=== PATIENT | male | born 2000 | race Asian ===

== ENCOUNTER 2024-11-22 19:23 | Inpatient (IN) | payer MEDICAID ==
[~2024-11-22] VITALS: Ht 172.7 cm; Wt 55.8 kg
[~2024-11-22 19:23] MED LIST: LURA60TA PO; VENL-193 PO
[2024-11-22] MEDS ORDERED: haloperidoL 5 MG TABLET PO PRN (20:45)
[2024-11-22 20:52] VITALS: BP 121/81; PULSE 103; RESP 16; TEMP 98.2; O2SAT 99
[2024-11-22] MEDS: LORazepam 2 MG TABLET PO PRN (21:32)
[2024-11-22] MEDS ORDERED: TUBERCULIN, PURIFIED PROTEIN DERIVATIVE 5 TU/0.1 ML SYRINGE ID ONE (21:45)
[2024-11-22] MEDS ORDERED: GuaiFENesin/D-METHORPHAN [SUGAR-FREE] 200-20MG/10 ML SYRUP UDCUP PO PRN (21:45)
[2024-11-22] MEDS ORDERED: LOPERAMIDE HCL 2 MG CAPSULE PO PRN (21:45)
[2024-11-22] MEDS ORDERED: PROMETHAZINE HCL 25 MG TABLET PO PRN (21:45)
[2024-11-22] MEDS ORDERED: ACETAMINOPHEN 325 MG TABLET PO PRN (21:45)
[2024-11-22] MEDS ORDERED: MAG HYDROX/ALUMINUM HYD/SIMETH ES 30 ML SUSPENSION UDCUP PO PRN (21:45)
[2024-11-22] MEDS ORDERED: MAGNESIUM HYDROXIDE SUSPENSION 30 ML UDCUP PO PRN (21:45)
[2024-11-22 21:46] LABS: GLUCOMETER DEV NAME(LOC) POC.BV; POC SARS-COV2 AG, FIA NEGATIVE (NEGATIVE)
[2024-11-22] MEDS: ZOLPIDEM TARTRATE 10 MG TABLET PO PRN (22:08)
[2024-11-23 08:20] VITALS: BP 121/79; PULSE 80; RESP 16; TEMP 96.9; O2SAT 100
[2024-11-23] MEDS: THIAMINE 100 MG TABLET PO SCH (09:00)
[2024-11-23] MEDS: FLUoxetine HCL 20 MG CAPSULE PO SCH (09:00)
[2024-11-23] MEDS: MULTIVITAMINS WITH MINERALS, THERAPEUTIC TABLET PO SCH (09:00)
[2024-11-23] MEDS: OMEGA-3/DHA/EPA/FISH OIL 1,000 MG CAPSULE PO SCH (09:00)
[2024-11-23] MEDS: FOLIC ACID 1 MG TABLET PO SCH (09:00)
[2024-11-23] MEDS: NALTREXONE HCL 50 MG TABLET PO SCH (09:00)
[2024-11-23] MEDS: ARIPiprazole 2 MG TABLET PO SCH (09:00)
[2024-11-23] MEDS: DEXTROMETHORPHAN HBR/QUINIDINE 20/10 MG CAPSULE PO SCH (09:00)
[2024-11-23 10:37] LABS: APPEARANCE,URINE TURBID (CLEAR); BILIRUBIN,URINE NEGATIVE (NEGATIVE); COLOR,URINE YELLOW (YELLOW); GLUCOSE, URINE (UA) NEGATIVE (NEGATIVE); LEUKOCYTE ESTERASE ,URINE TRACE (NEGATIVE); NITRATE,URINE NEGATIVE (NEGATIVE); OCCULT BLOOD,URINE NEGATIVE (NEGATIVE); PROTEIN,URINE NEGATIVE (NEGATIVE); SPECIFIC GRAVITIY, URINE 1.029 (1.003-1.030); UROBILINOGEN,URINE <=1.0 mg/dL (<=1.0)
[2024-11-23 10:40] LABS: ALCOHOL, URINE DRUG SCREEN NEGATIVE (NEGATIVE); AMPHET/METH SCREEN,URINE NEGATIVE (NEGATIVE); BARBITURATE SCREEN, URINE NEGATIVE (NEGATIVE); BENZODIAZEPINES SCREEN,URINE NEGATIVE (NEGATIVE); CANNABINOID SCREEN,URINE NEGATIVE (NEGATIVE); METHADONE SCREEN, URINE NEGATIVE (NEGATIVE); OPIATE SCREEN,URINE NEGATIVE (NEGATIVE); PHENCYCLIDINE SCREEN,URINE NEGATIVE (NEGATIVE)
[2024-11-23 11:00] LABS: AMORPHOUS SEDIMENT,UR Moderate /LPF (None Seen); BACTERIA,URINE None Seen /HPF (None Seen); RBC,URINE None Seen /HPF (0-2); WBC,URINE 0-2 /HPF (0-5)
[2024-11-23 11:17] LABS: COCAINE SCREEN,URINE NEGATIVE (NEGATIVE)
[2024-11-23] MEDS: HydrOXYzine PAMOATE 50 MG CAPSULE PO PRN (15:54)
[2024-11-23] MEDS ORDERED: QUEtiapine FUMARATE 25 MG TABLET PO PRN (17:30)
[2024-11-23 20:04] VITALS: BP 121/70; PULSE 100; RESP 16; TEMP 97.7; O2SAT 95
[2024-11-23] MEDS: QUEtiapine FUMARATE 100 MG TABLET PO SCH (20:17)
[2024-11-23] MEDS: MIRTAZAPINE 15 MG TABLET PO SCH (20:17)
[2024-11-23] MEDS: GABAPENTIN 400 MG CAPSULE PO SCH (20:17)
[2024-11-23] MEDS: MELATONIN 5 MG TABLET PO SCH (20:18)
[2024-11-24 08:05] VITALS: BP 90/60; PULSE 67; RESP 18; TEMP 97.9; O2SAT 98
[2024-11-24] MEDS: GABAPENTIN 300 MG CAPSULE PO SCH (16:29)
[2024-11-24 20:03] VITALS: BP 117/62; PULSE 100; RESP 17; TEMP 97.8
[2024-11-24] MEDS: MIRTAZAPINE 15 MG TABLET PO SCH (20:45)
[2024-11-25 08:11] VITALS: RESP 16
[2024-11-25 08:44] LABS: PH,URINE DRUG SCREEN 6.5 (5.0-8.0)
[2024-11-25 08:49] LABS: ALCOHOL, URINE DRUG SCREEN NEGATIVE (NEGATIVE); AMPHET/METH SCREEN,URINE NEGATIVE (NEGATIVE); BARBITURATE SCREEN, URINE NEGATIVE (NEGATIVE); BENZODIAZEPINES SCREEN,URINE NEGATIVE (NEGATIVE); CANNABINOID SCREEN,URINE NEGATIVE (NEGATIVE); COCAINE SCREEN,URINE NEGATIVE (NEGATIVE); METHADONE SCREEN, URINE NEGATIVE (NEGATIVE); OPIATE SCREEN,URINE NEGATIVE (NEGATIVE); PHENCYCLIDINE SCREEN,URINE NEGATIVE (NEGATIVE)
[2024-11-25] MEDS: GABAPENTIN 300 MG CAPSULE PO SCH (17:45)
[2024-11-25] MEDS: BusPIRone HCL 5 MG TABLET PO SCH (17:45)
[2024-11-25] MEDS: QUEtiapine FUMARATE 25 MG TABLET PO SCH (17:45)
[2024-11-26 08:42] VITALS: BP 104/72; PULSE 71; RESP 17; TEMP 98; O2SAT 97
[2024-11-26] MEDS: NALTREXONE HCL 50 MG TABLET PO SCH (11:10)
[2024-11-26] MEDS: FLUoxetine HCL 20 MG CAPSULE PO SCH (11:11)
[2024-11-26] MEDS: DEXTROMETHORPHAN HBR/QUINIDINE 20/10 MG CAPSULE PO SCH (11:49)
[2024-11-26] MEDS: BusPIRone HCL 10 MG TABLET PO SCH (16:37)
[2024-11-26 20:00] VITALS: RESP 18
[2024-11-26] MEDS: MIRTAZAPINE 30 MG TABLET PO SCH (21:00)
[2024-11-27 09:55] VITALS: BP 106/67; PULSE 95; RESP 16; TEMP 97.4; O2SAT 96
[2024-11-27] MEDS: FLUoxetine HCL 20 MG CAPSULE PO SCH (11:31)
[2024-11-28 20:05] VITALS: BP 119/80; PULSE 89; RESP 17; TEMP 98.1; O2SAT 96
[2024-11-29 08:36] VITALS: BP 102/86; PULSE 79; RESP 16; TEMP 97.4; O2SAT 95
[2024-11-29] MEDS: BusPIRone HCL 15 MG TABLET PO SCH (17:28)
[2024-11-29] MEDS: GABAPENTIN 400 MG CAPSULE PO SCH (17:31)
[2024-11-29 21:08] VITALS: PULSE 85; RESP 16; TEMP 97.7; O2SAT 95
[2024-11-30 09:10] VITALS: BP 117/79; PULSE 73; RESP 17; TEMP 97.3; O2SAT 95
[2024-11-30] MEDS: FLUoxetine HCL 20 MG CAPSULE PO SCH (11:51)
[2024-11-30 13:01] VITALS: BP 117/79; PULSE 63; RESP 17; TEMP 97.3; O2SAT 96
[2024-11-30 20:24] VITALS: BP 126/71; PULSE 88; RESP 16; TEMP 98.4; O2SAT 96
[2024-11-30] MEDS: GABAPENTIN 300 MG CAPSULE PO PRN (21:12)
[2024-12-01 08:31] VITALS: BP 126/76; PULSE 65; RESP 18; TEMP 98.2; O2SAT 97
[2024-12-01] MEDS: FLUoxetine HCL 20 MG CAPSULE PO SCH (12:11)
[2024-12-01 20:14] VITALS: BP 136/77; PULSE 76; RESP 18; TEMP 98.6; O2SAT 95
[2024-12-02 08:22] VITALS: BP 115/70; PULSE 66; RESP 16; TEMP 97; O2SAT 99
[2024-12-02] MEDS: BusPIRone HCL 10 MG TABLET PO SCH (17:56)
[2024-12-02 20:45] VITALS: BP 123/92; PULSE 84; RESP 16; TEMP 97.9; O2SAT 96
[2024-12-03 08:48] VITALS: BP 101/67; PULSE 60; RESP 16; TEMP 97.4; O2SAT 100
[2024-12-03 20:08] VITALS: BP 137/90; PULSE 85; RESP 16; TEMP 97.7; O2SAT 95
[2024-12-04 09:15] VITALS: BP 106/67; PULSE 70; RESP 17; TEMP 97.5; O2SAT 98
[2024-12-04] MEDS: BusPIRone HCL 10 MG TABLET PO SCH (12:55)
[2024-12-04 20:24] VITALS: BP 111/78; PULSE 79; RESP 16; TEMP 97.7; O2SAT 96
[2024-12-05 08:40] VITALS: BP 111/71; PULSE 76; RESP 16; TEMP 97.3; O2SAT 100
[2024-12-05] MEDS ORDERED: BUSP15 PO (13:25)
[2024-12-05] MEDS ORDERED: FLUO-418 PO (13:26)
[2024-12-05] MEDS ORDERED: GABA-1201 PO (13:27)
[2024-12-05] MEDS ORDERED: NALT50TA33 PO (13:28)
[2024-12-05] MEDS ORDERED: MIRT-149 PO (13:29)
[2024-12-05] MEDS ORDERED: QUET25TA PO (13:30)
[2024-12-05] MEDS ORDERED: DEXT1CAP3 PO (13:31)
== END 2024-12-05 20:25 | disposition home or self-care (01) | DRG 751 ==
LOC: B2S 20:36
PROVIDERS: ADMIT Psychiatry & Neurology Psychiatry; ATTEND Psychiatry & Neurology Psychiatry
PROC: GZHZZZZ Group Psychotherapy (ICD-10-PCS; principal; 2024-11-23)
PROC: GZ58ZZZ Individual Psychotherapy, Cognitive-Behavioral (ICD-10-PCS; 2024-11-23)
PROC: GZ56ZZZ Individual Psychotherapy, Supportive (ICD-10-PCS; 2024-11-23)
DX: F33.3 Major depressive disorder, recurrent, severe with psychotic symptoms (principal); R45.851 Suicidal ideations; F41.9 Anxiety disorder, unspecified; G47.00 Insomnia, unspecified; Z20.822 Contact with and (suspected) exposure to COVID-19; Z79.899 Other long term (current) drug therapy; Z63.9 Problem related to primary support group, unspecified; Z59.9 Problem related to housing and economic circumstances, unspecified; Z65.3 Problems related to other legal circumstances; Z55.9 Problems related to education and literacy, unspecified
CPT/HCPCS: 80307; 81001; 87081

== ENCOUNTER 2025-01-12 00:24 | Inpatient (IN) | payer BC, MEDICAID ==
[~2025-01-12] VITALS: Ht 172.7 cm; Wt 56.2 kg
[~2025-01-12 00:24] MED LIST changes: +BUSP15 PO; +DEXT1CAP3 PO; +FLUO-418 PO; +GABA-1201 PO; -LURA60TA PO; +MIRT-149 PO; +NALT50TA33 PO; +QUET25TA PO; -VENL-193 PO
[2025-01-12] MEDS ORDERED: haloperidoL 5 MG TABLET PO PRN (02:00)
[2025-01-12 02:11] LABS: GLUCOMETER DEV NAME(LOC) POC.BV; POC SARS-COV2 AG, FIA NEGATIVE (NEGATIVE)
[2025-01-12] MEDS: ZOLPIDEM TARTRATE 10 MG TABLET PO PRN (02:33)
[2025-01-12] MEDS: LORazepam 2 MG TABLET PO PRN (02:34)
[2025-01-12 03:09] VITALS: BP 118/79; PULSE 86; RESP 18; TEMP 97.5; O2SAT 99
[2025-01-12 08:12] VITALS: BP 121/81; PULSE 95; RESP 18; TEMP 97.6; O2SAT 100
[2025-01-12] MEDS ORDERED: MAG HYDROX/ALUMINUM HYD/SIMETH ES 30 ML SUSPENSION UDCUP PO PRN (09:00)
[2025-01-12] MEDS ORDERED: MAGNESIUM HYDROXIDE SUSPENSION 30 ML UDCUP PO PRN (09:00)
[2025-01-12] MEDS ORDERED: IBUPROFEN 600 MG TABLET PO PRN (09:00)
[2025-01-12] MEDS ORDERED: DOCUSATE SODIUM 100 MG CAPSULE PO PRN (09:00)
[2025-01-12] MEDS ORDERED: BENZOCAINE/MENTHOL [CEPACOL] LOZENGE PO PRN (09:00)
[2025-01-12] MEDS ORDERED: OMEPRAZOLE 20 MG CAPSULE PO PRN (09:00)
[2025-01-12] MEDS ORDERED: ACETAMINOPHEN 325 MG TABLET PO PRN (09:00)
[2025-01-12] MEDS ORDERED: LOPERAMIDE HCL 2 MG CAPSULE PO PRN (09:00)
[2025-01-12] MEDS ORDERED: ONDANSETRON 4 MG TABLET PO PRN (09:00)
[2025-01-12] MEDS ORDERED: CloNIDine HCL 0.1 MG TABLET PO PRN (09:00)
[2025-01-12] MEDS ORDERED: BACITRACIN 28 GM OINTMENT TP PRN (09:00)
[2025-01-12] MEDS ORDERED: ALBUTEROL SULFATE HFA 90 MCG/PUFF 8 GM INHALER IH PRN (09:00)
[2025-01-12] MEDS ORDERED: PETROLATUM,WHITE 28 GM JELLY TP PRN (09:00)
[2025-01-12] MEDS: VENLAFAXINE HCL 75 MG ER CAPSULE PO SCH (16:06)
[2025-01-12] MEDS: BusPIRone HCL 15 MG TABLET PO SCH (16:07)
[2025-01-12] MEDS: QUEtiapine FUMARATE 100 MG TABLET PO SCH (16:07)
[2025-01-12] MEDS: NALTREXONE HCL 50 MG TABLET PO SCH (16:07)
[2025-01-12 20:21] VITALS: BP 121/85; PULSE 84; RESP 17; TEMP 98.2; O2SAT 98
[2025-01-12] MEDS: MIRTAZAPINE 30 MG TABLET PO SCH (20:37)
[2025-01-12] MEDS: TraZODone HCL 50 MG TABLET PO SCH (20:37)
[2025-01-12] MEDS: QUEtiapine FUMARATE 200 MG TABLET PO SCH (20:38)
[2025-01-13 08:35] VITALS: BP 112/84; PULSE 89; RESP 16; TEMP 97.3; O2SAT 99
[2025-01-13 20:32] VITALS: BP 115/85; PULSE 89; RESP 16; TEMP 98.2; O2SAT 98
[2025-01-14 08:16] VITALS: BP 107/60; PULSE 68; RESP 17; TEMP 98; O2SAT 96
[2025-01-14 20:41] VITALS: BP 118/90; PULSE 100; RESP 16; TEMP 99.5; O2SAT 100
[2025-01-15 08:36] VITALS: RESP 18
[2025-01-15 09:44] VITALS: BP 121/77; PULSE 64; RESP 17; TEMP 97.7; O2SAT 100
[2025-01-15 20:15] VITALS: BP 129/89; PULSE 99; RESP 17; TEMP 97.8; O2SAT 97
[2025-01-16 08:25] VITALS: BP 114/66; PULSE 62; RESP 17; TEMP 98.2; O2SAT 99
[2025-01-16 20:37] VITALS: BP 117/85; PULSE 100; RESP 17; TEMP 97; O2SAT 99
[2025-01-17 08:25] VITALS: BP 128/89; PULSE 81; RESP 16; TEMP 97.7; O2SAT 99
[2025-01-17] MEDS ORDERED: QUET100T PO (09:44)
[2025-01-17] MEDS ORDERED: QUET200T PO (09:44)
[2025-01-17] MEDS ORDERED: VENL-67 PO (09:45)
[2025-01-17] MEDS ORDERED: TRAZ-252 PO (09:46)
== END 2025-01-17 13:31 | disposition home or self-care (01) | DRG 885 ==
LOC: B2S 02:05
PROVIDERS: ADMIT Psychiatry & Neurology Child & Adolescent Psychiatry; ATTEND Psychiatry & Neurology Child & Adolescent Psychiatry
PROC: GZ56ZZZ Individual Psychotherapy, Supportive (ICD-10-PCS; 2025-01-12)
PROC: GZ58ZZZ Individual Psychotherapy, Cognitive-Behavioral (ICD-10-PCS; 2025-01-12)
PROC: GZHZZZZ Group Psychotherapy (ICD-10-PCS; principal; 2025-01-13)
PROC: GZ52ZZZ Individual Psychotherapy, Cognitive (ICD-10-PCS; 2025-01-13)
DX: F33.3 Major depressive disorder, recurrent, severe with psychotic symptoms (principal); R45.851 Suicidal ideations; F41.9 Anxiety disorder, unspecified; G47.00 Insomnia, unspecified; K59.00 Constipation, unspecified; Z20.822 Contact with and (suspected) exposure to COVID-19; F17.200 Nicotine dependence, unspecified, uncomplicated; F60.9 Personality disorder, unspecified; F10.90 Alcohol use, unspecified, uncomplicated; Y90.9 Presence of alcohol in blood, level not specified; Z71.6 Tobacco abuse counseling; Z79.899 Other long term (current) drug therapy
CPT/HCPCS: Z7610